=== PATIENT | female | born 2000 | race American Indian/Alaskan Native ===

== ENCOUNTER 2020-08-28 21:09 | Emergency (ER) | payer SELFPAY ==
[2020-08-28 23:53] LABS: Basophils % (Auto) 0.3 % (0.0-1.8); Eosinophils # (Auto) 0.1 K/mm3 (0.0-0.4); Eosinophils % (Auto) 0.8 % (0.0-4.3); Hematocrit 40.6 % (30.3-42.9); Hemoglobin 14.2 gm/dl (10.1-14.3); Lymphocytes # (Auto) 1.4 K/mm3 (1.2-5.4); Mean Corpuscular HGB Conc 35 % (30-34); Mean Corpuscular Volume 86 fl (79-97); Monocytes # (Auto) 0.7 K/mm3 (0.0-0.8); Monocytes % (Auto) 5.7 % (0.0-7.3); Platelet Count 279 K/mm3 (140-440); Red Blood Count 4.73 M/mm3 (3.65-5.03); Red Cell Distribution Width 13.9 % (13.2-15.2)
[2020-08-29 00:14] LABS: Blood Urea Nitrogen 8 mg/dL (7-17); Calcium 9.5 mg/dL (8.4-10.2); Hemolysis Index 10
--- NOTE | 2020-08-29 00:39 | Cat Scan Report ---
CT head/brain wo con INDICATION: head injury. TECHNIQUE: Routine CT head without contrast. All CT scans at this location are performed using CT dos e reduction for ALARA by means of automated exposure control. COMPARISON: None. FINDINGS: BRAIN / INTRACRANIAL CONTENTS: No acute hemorrhage, mass effect, midline shift, or hydrocephalus. No appreciable acute large territorial or lacunar infarct. No chronic infarct or focal atrophy. Normal b rain volume and ventricular/sulcal size for age. ORBITS: No significant abnormality of visualized orbits. SINUSES / MASTOIDS: No significant abnormality of visualized sinuses and mastoid air cells. ADDITIONAL FINDINGS: There is a small laceration noted along the forehead. No underlying osseous abno rmality. IMPRESSION: 1. No acute intracranial abnormality. Small forehead laceration. Signer Name: Jyothi Mejia MD Signed: 08/29/2020 12:35 AM Workstation Name: [id number]
[2020-08-29 00:51] LABS: BUN/Creatinine Ratio 13
[2020-08-29] MEDS ORDERED: DIPHtheria,PERTUSSIS(ACELL),TETANUS VACCINE/PF 0.5 ML VIAL IM ONE (00:59)
[2020-08-29] MEDS ORDERED: ACETAMINOPHEN 500 MG TAB PO ONE (00:59)
[2020-08-29] MEDS ORDERED: LIDOCAINE-MPF (1%) 10 MG/1 ML VIAL 5 ML INFILTRATI ONE (00:59)
--- NOTE | 2020-08-29 02:34 | Emergency Department Report ---
ED Syncope HPI - General Chief Complaint: Dizziness Stated Complaint: GROUND LEVEL FALL Time Seen by Provider: 08/29/20 00:40 - History of Present Illness Initial Comments: Patient is a nulliparous 19-year-old -[place] female with no past medical history except chronic cannabis abuse who presents to the ED with complaint of acute onset severe headache with frontal scalp bleeding laceration after she had a single syncope episode prior to arrival in the ED, resulting in her falling and hitting her head, resulting in frontal scalp laceration and multiple facial abrasions. Patient states that she had just smoked multiple sticks of marijuana, more than she usually smokes when she started feeling lightheaded and had a syncopal episode with a brief loss of consciousness. Patient states that she was outside a nightclub where she had gone with her friends about 1 hour ago. Patient states that she had brief loss of consciousness and now complains of headache. Patient denies nausea, vomiting, neck pain, change in vision, seizures, speech changes, chest pain or shortness of breath, back pain, numbness and tingling or weakness of upper and lower extremities bilaterally. Timing/Prior Episodes: no prior history, single episode today, other (headache; forehead laceration) Precipitating Factors: Positive: lightheadedness, other (heavy marijuana smoking ) Context: standing Episode Description: syncope, fell and hit forehead resulting in forehead laceration Loss of Consciousness: brief (seconds) Current Symptoms: back to normal, headache, injury, lightheadedness. denies: blurred vision, chest pain, diaphoresis, dizziness, loss of bladder control, loss of bowel control, motionless, nausea, pale, shallow/rapid breathing, weak/absent pulse, weakness, other - Related Data Allergies/Adverse Reactions: Allergies Penicillins Allergy (Verified 08/28/20 23:05) Hives Home Medications: Ambulatory Orders Ibuprofen [Motrin] 800 mg PO Q8HR PRN #24 tablet 08/29/20 Sulfamethoxazole/Trimethoprim [Bactrim DS TAB] 1 each PO Q12H #20 tablet 08/29/20 ED Review of Systems ROS: Stated complaint: GROUND LEVEL FALL Other details as noted in HPI Constitutional: denies: chills, fever Eyes: denies: eye pain, eye discharge, vision change ENT: other (Multiple facial abrasions and bleeding frontal scalp laceration). denies: ear pain, throat pain Respiratory: denies: cough, shortness of breath, wheezing Cardiovascular: denies: chest pain, palpitations Endocrine: no symptoms reported Gastrointestinal: denies: abdominal pain, nausea, diarrhea Genitourinary: denies: urgency, dysuria, discharge Musculoskeletal: denies: back pain, joint swelling, arthralgia Skin: other (Bleeding frontal scalp laceration). denies: rash, lesions Neurological: headache. denies: weakness, paresthesias Psychiatric: denies: anxiety, depression Hematological/Lymphatic: denies: easy bleeding, easy bruising ED Past Medical Hx - Past Medical History Previous Medical History?: No - Surgical History Past Surgical History?: Yes Additional Surgical History: Tonsillectomy - Social History Smoking Status: Current Every Day Smoker Substance Use Type: Marijuana - Medications Home Medications: Home Medications Medication Instructions Recorded Confirmed Last Taken Type Ibuprofen [Motrin] 800 mg PO Q8HR PRN #24 tablet 08/29/20 Unknown Rx Sulfamethoxazole/Trimethoprim 1 each PO Q12H #20 tablet 08/29/20 Unknown Rx [Bactrim DS TAB] ED Physical Exam - General Limitations: No Limitations General appearance: alert, in no apparent distress - Head Head exam: Present: other (Bleeding 4 cm frontal scalp laceration) - Eye Eye exam: Present: normal appearance, PERRL, EOMI Pupils: Present: normal accommodation - ENT ENT exam: Present: normal exam, normal orophraynx, mucous membranes moist, TM's normal bilaterally, normal external ear exam, other (Multiple facial abrasions) - Neck Neck exam: Present: normal inspection, full ROM. Absent: tenderness, meningismus, lymphadenopathy, thyromegaly - Respiratory Respiratory exam: Present: normal lung sounds bilaterally. Absent: respiratory distress, wheezes, rales, stridor, chest wall tenderness, decreased breath sounds, prolonged expiratory - Cardiovascular Cardiovascular Exam: Present: regular rate, normal rhythm, normal heart sounds. Absent: systolic murmur, diastolic murmur, rubs, gallop - GI/Abdominal GI/Abdominal exam: Present: soft, normal bowel sounds. Absent: tenderness, guarding, rebound, hyperactive bowel sounds, hypoactive bowel sounds, organ omegaly - Extremities Exam Extremities exam: Present: normal inspection, full ROM, normal capillary refill - Back Exam Back exam: Present: normal inspection, full ROM. Absent: tenderness, CVA tenderness (R), CVA tenderness (L), muscle spasm, paraspinal tenderness, vertebral tenderness - Neurological Exam Neurological exam: Present: alert, oriented X3, CN II-XII intact, normal gait, reflexes normal - Psychiatric Psychiatric exam: Present: normal affect, normal mood - Skin Skin exam: Present: warm, dry, intact, normal color, abrasion (Multiple facial abrasions), other (Bleeding frontal scalp 4 cm laceration). Absent: rash ED Course Vital Signs 08/28/20 22:54 Temperature 98.2 F Pulse Rate 81 Respiratory 18 Rate Blood Pressure 118/76 O2 Sat by Pulse 100 Oximetry - Laceration /Wound Repair Anterior Frontal Wound Location: head (frontal saclp) Wound Length (cm): 4 Wound's Depth, Shape: superficial, irregular Wound Explored: contaminated Irrigated w/ Saline (ccs): 100 Betadine Prep?: Yes Anesthesia: 1% Lidocaine Volume Anesthetic (ccs): 5 Wound Debrided: extensive Wound Repaired With: sutures Suture Size/Type: 5:0, proline Number of Sutures: 8 Sterile Dressing Applied?: No Progress: The wound was cleaned thoroughly with normal saline and Betadine. Lidocaine 1% solution was infiltrated in the wound and around the wound for anesthesia. The wound was then sutured per protocol and the patient tolerated the procedure well. Patient was discharged home on pain medication and prophylactic antibiotics and was advised to follow-up with her primary care physician in 7 to 10 days for reevaluation. Patient was also advised to return to the ED immediately if symptoms get worse. Patient was otherwise advised return to the ED or to her primary care physician in 8 to 10 days for suture removal. ED Medical Decision Making - Lab Data Result diagrams: 08/28/20 23:38 08/28/20 23:38 - Radiology Data Radiology results: report reviewed, image reviewed Findings [facility] [address] [place] [address] Cat Scan Report Signed Patient: JOSÉ ANTONIO DINH MR#: [id number] 8 : 2000 Acct:[id number] Age/Sex: 19 / F ADM Date: 08/28/20 Loc: ED Attending Dr: Ordering Physician: AMRITA BADILLO MD Date of Service: 08/28/20 Procedure(s): CT head/brain wo con Accession Number(s): [id number] cc: ED DOCMD CT head/brain wo con INDICATION: head injury. TECHNIQUE: Routine CT head without contrast. All CT scans at this location are performed using CT dose reduction for ALARA by means of automated exposure control. COMPARISON: None. FINDINGS: BRAIN / INTRACRANIAL CONTENTS: No acute hemorrhage, mass effect, midline shift, or hydrocephalus. No appreciable acute large territorial or lacunar infarct. No chronic infarct or focal atrophy. Normal brain volume and ventricular/sulcal size for age. ORBITS: No significant abnormality of visualized orbits. SINUSES / MASTOIDS: No significant abnormality of visualized sinuses and mastoid air cells. ADDITIONAL FINDINGS: There is a small laceration noted along the forehead. No underlying osseous abnormality. IMPRESSION: 1. No acute intracranial abnormality. Small forehead laceration. Signer Name: Jyothi Mejia MD Signed: 08/29/2020 12:35 AM Workstation Name: [id number] Transcribed By: [place] Dictated By: Jyothi Mejia MD Electronically Authenticated By: Jyothi Mejia MD Signed Date/Time: 08/29/2034 DD/ TD/TT: - Medical Decision Making This is a nulliparous 19-year-old -[place] female with no past medical history except chronic cannabis abuse who presents to the ED with complaint of acute onset severe headache with frontal scalp bleeding laceration after she had a single syncope episode prior to arrival in the ED, resulting in her falling and hitting her head, resulting in frontal scalp laceration and multiple facial abrasions. Patient states that she had just smoked multiple sticks of marijuana, more than she usually smokes when she started feeling lightheaded and had a syncopal episode with a brief loss of consciousness. Patient states that she was outside a nightclub where she had gone with her friends about 1 hour ago. Patient states that she had brief loss of consciousness and now complains of headache. In the ED, patient is alert and oriented x3 and is not in distress but appears to be in pain. Patient was treated for pain in the ED and frontal scalp bleeding laceration was cleaned thoroughly and sutured per protocol. Patient tolerated the procedure well. Lab test results were reviewed and are all nonactionable. The head CT scan without contrast showed no acute intracran ial abnormalities or hemorrhage. On reevaluation, patient's pain is well controlled medications. Patient will discharge home on pain medication and prophylactic antibiotics for the sutured frontal scalp bleeding laceration. Patient was advised to return to the ED immediately if her symptoms get worse, otherwise follow-up with her primary care physician in 7 to 10 days for reevaluation. Patient was advised to return to the ED or to her primary care physician in 8 to 10 days for suture removal. - Differential Diagnosis scalp contusion; concussion; syncope; laceration; headache Critical care attestation.: If time is entered above; I have spent that time in minutes in the direct care of this critically ill patient, excluding procedure time. ED Disposition Clinical Impression: Situational syncope, Acute post-traumatic headache, not intractable Scalp laceration Qualifiers: Encounter type: initial encounter Qualified Code(s): S01.01XA - Laceration without foreign body of scalp, initial encounter Disposition: TO HOME OR SELFCARE Is pt being admited?: No Does the pt Need Aspirin: No Condition: Stable Instructions: Syncope (ED), Wound Infection, [id number], Laceration Care, Adult, [id number], Sutured Wound Care, [id number], Tension Headache, Adult, [id number] Additional Instructions: The lab test results were reviewed and are all nonactionable. The head CT scan without contrast shows no acute intracranial abnormalities or hemorrhage. Therefore take medications with food, drink plenty of fluids and follow-up with your primary care physician in 7 to 10 days for reevaluation. Return to the ED immediately if symptoms get worse. Otherwise return to the ED or to your primary care physician in 8 to 10 days for suture removal. Prescriptions: Sulfamethoxazole/Trimethoprim [Bactrim DS TAB] 1 each PO Q12H #20 tablet Ibuprofen [Motrin] 800 mg PO Q8HR PRN #24 tablet PRN Reason: Pain , Severe (7-10) Referrals: [facility] [Provider Group] - 7-10 days Time of Disposition: 02:34 Print Language: PERSIAN
[2020-08-29 03:34] VITALS: BP 120/81
== END 2020-08-29 02:51 | disposition home or self-care (01) ==
LOC: ED 21:09
DX: S01.01XA Laceration without foreign body of scalp, initial encounter (principal); G44.319 Acute post-traumatic headache, not intractable; R55 Syncope and collapse; F17.200 Nicotine dependence, unspecified, uncomplicated; F12.90 Cannabis use, unspecified, uncomplicated; Z79.899 Other long term (current) drug therapy; Z88.0 Allergy status to penicillin; Z90.49 Acquired absence of other specified parts of digestive tract; W18.30XA Fall on same level, unspecified, initial encounter; Y93.89 Activity, other specified; Y92.89 Other specified places as the place of occurrence of the external cause; Y99.8 Other external cause status
CPT/HCPCS: 36415; 70450; 80048; 84703; 85025; 90471; 90715; 93005